=== PATIENT | female | born 1955 | race Caucasian/White ===

== ENCOUNTER 2021-03-20 09:38 | Observation (INO) | payer BC ==
--- NOTE | 2021-03-20 11:21 | XR ---
EXAMINATION TYPE: XR chest 2V DATE OF EXAM: 03/20/2021 COMPARISON: NONE HISTORY: 65 years Female. STUDY INDICATION GIVEN: dysrhythmia . TECHNIQUE: PA and lateral chest radiographs IMPRESSION: No focal airspace disease, pneumothorax or pleural effusion. There may be minimal bibasilar right gre ater than left subsegmental atelectasis. Normal cardiomediastinal silhouette with postsurgical changes. No acute osseous abnormality.
--- NOTE | 2021-03-20 11:53 | ED ---
General Adult HPI - General Chief complaint: Arrhythmia/Palpitations Stated complaint: Heart palpations Time Seen by Provider: 03/20/21 10:54 Source: patient, RN notes reviewed, old records reviewed Mode of arrival: wheelchair Limitations: no limitations - History of Present Illness Initial comments: 65-year-old female presenting with palpitations. Symptoms have been present for the past 24 hours. She's had episodes similar to this in the past but did not last as long. No known history of arrhythmia. She has remote history of open heart surgery for septal defect and valve repair. No history of coronary artery disease. Patient denies chest pain but his had some indigestion over the past 5 days. She does have a history of gastric reflux. No cough or dyspnea. No fever. - Related Data Home Medications Medication Instructions Recorded Confirmed Cholecalciferol [Vitamin D3 (25 50 mcg PO DAILY 03/20/21 03/20/21 Mcg = 1000 Iu)] Loratadine [Claritin] 10 mg PO DAILY 03/20/21 03/20/21 Metoprolol Succinate (ER) [Toprol 12.5 mg PO DAILY 03/20/21 03/20/21 Xl] Modafinil [Provigil] 100 mg PO DAILY PRN 03/20/21 03/20/21 Pantoprazole Sodium [Protonix] 40 mg PO DAILY 03/20/21 03/20/21 Vitamin B Complex 1 cap PO DAILY 03/20/21 03/20/21 cycloSPORINE 0.05% OPHTH SOLN 1 applicator BOTH EYES HS 03/20/21 03/20/21 [Restasis] Allergies Allergy/AdvReac Type Severity Reaction Status Date / Time ceftriaxone [From Rocephin] Allergy Unknown Verified 03/20/21 12:01 ciprofloxacin [From Cipro] Allergy Unknown Verified 03/20/21 12:01 Review of Systems ROS Statement: Those systems with pertinent positive or pertinent negative responses have been documented in the HPI. ROS Other: All systems not noted in ROS Statement are negative. Past Medical History Past Medical History: GERD/Reflux Additional Past Medical History / Comment(s): pancreatitis History of Any Multi-Drug Resistant Organisms: None Reported Past Surgical History: Coronary Bypass/CABG, Ear Surgery, Tonsillectomy Past Psychological History: Depression Smoking Status: Never smoker Past Alcohol Use History: Rare Past Drug Use History: None Reported General Exam Limitations: no limitations General appearance: alert, in no apparent distress Head exam: Present: atraumatic, normocephalic Eye exam: Present: normal appearance, PERRL ENT exam: Present: normal exam Neck exam: Present: normal inspection. Absent: tenderness, meningismus Respiratory exam: Present: normal lung sounds bilaterally. Absent: respiratory distress, wheezes Cardiovascular Exam: Present: regular rate, normal rhythm GI/Abdominal exam: Present: soft. Absent: distended, tenderness, guarding Extremities exam: Present: normal inspection, normal capillary refill. Absent: pedal edema, calf tenderness Neurological exam: Present: alert, oriented X3, CN II-XII intact. Absent: motor sensory deficit Psychiatric exam: Present: normal affect, normal mood Skin exam: Present: warm, dry, intact. Absent: cyanosis, diaphoretic Course Vital Signs 03/20/21 03/20/21 10:08 14:11 Temperature 98.1 F 97.9 F Pulse Rate 73 68 Respiratory 20 17 Rate Blood Pressure 135/82 132/84 O2 Sat by Pulse 99 98 Oximetry EKG Findings - EKG Comments: EKG Findings:: EKG: Normal sinus rhythm, RSR prime prolonged QT, rate of 64, OR interval 184, QRS duration 88, QTC 480, T-wave flattening throughout the precordial leads, no ST segment elevation no old for comparison. EKG: Obtained while the patient is symptomatic at 1322, second degree heart block and left axis deviation, rate of 67, OR interval is within normal limits, QRS duration is 82, QTC 458 Medical Decision Making - Medical Decision Making 65-year-old female who had presented with palpitations. Initial EKG sinus rhythm. Repeat EKG shows second-degree heart block while the patient is symptomatic. Blood pressure is stable. Her CBC, CMP are unremarkable, troponin is negative. She will be monitored on telemetry as she was quite symptomatic with this episode. Cardiology placed on consult. Case discussed with Dr. Stroud. - Lab Data Result diagrams: 03/20/21 12:43 03/20/21 12:43 Lab Results 03/20/21 03/20/21 03/20/21 Range/Units 12:43 12:43 12:43 WBC 6.9 (3.8-10.6) k/uL RBC 4.46 (3.80-5.40) m/uL Hgb 13.2 (11.4-16.0) gm/dL Hct 40.7 (34.0-46.0) % MCV 91.2 (80.0-100.0) fL MCH 29.5 (25.0-35.0) pg MCHC 32.4 (31.0-37.0) g/dL RDW 12.7 (11.5-15.5) % Plt Count 290 (150-450) k/uL MPV 7.6 Neutrophils % 69 % Lymphocytes % 23 % Monocytes % 4 % Eosinophils % 1 % Basophils % 1 % Neutrophils # 4.8 (1.3-7.7) k/uL Lymphocytes # 1.6 (1.0-4.8) k/uL Monocytes # 0.3 (0-1.0) k/uL Eosinophils # 0.0 (0-0.7) k/uL Basophils # 0.0 (0-0.2) k/uL PT 11.2 (9.0-12.0) sec INR 1.1 (<1.2) APTT 22.0 (22.0-30.0) sec Sodium 140 (137-145) mmol/L Potassium 4.6 (3.5-5.1) mmol/L Chloride 107 (98-107) mmol/L Carbon Dioxide 27 (22-30) mmol/L Anion Gap 6 mmol/L BUN 16 (7-17) mg/dL Creatinine 0.93 (0.52-1.04) mg/dL Est GFR (CKD-EPI)AfAm 76 (>60 ml/min/1.73 sqM) Est GFR (CKD-EPI)NonAf 66 (>60 ml/min/1.73 sqM) Glucose 95 (74-99) mg/dL Calcium 9.9 (8.4-10.2) mg/dL Magnesium 2.1 (1.6-2.3) mg/dL Total Bilirubin 0.6 (0.2-1.3) mg/dL AST 30 (14-36) U/L ALT 18 (4-34) U/L Alkaline Phosphatase 39 (38-126) U/L Troponin I (0.000-0.034) ng/mL Total Protein 7.3 (6.3-8.2) g/dL Albumin 4.4 (3.5-5.0) g/dL Coronavirus (PCR) (Not Detectd) 03/20/21 03/20/21 Range/Units 12:43 12:43 WBC (3.8-10.6) k/uL RBC (3.80-5.40) m/uL Hgb (11.4-16.0) gm/dL Hct (34.0-46.0) % MCV (80.0-100.0) fL MCH (25.0-35.0) pg MCHC (31.0-37.0) g/dL RDW (11.5-15.5) % Plt Count (150-450) k/uL MPV Neutrophils % % Lymphocytes % % Monocytes % % Eosinophils % % Basophils % % Neutrophils # (1.3-7.7) k/uL Lymphocytes # (1.0-4.8) k/uL Monocytes # (0-1.0) k/uL Eosinophils # (0-0.7) k/uL Basophils # (0-0.2) k/uL PT (9.0-12.0) sec INR (<1.2) APTT (22.0-30.0) sec Sodium (137-145) mmol/L Potassium (3.5-5.1) mmol/L Chloride (98-107) mmol/L Carbon Dioxide (22-30) mmol/L Anion Gap mmol/L BUN (7-17) mg/dL Creatinine (0.52-1.04) mg/dL Est GFR (CKD-EPI)AfAm (>60 ml/min/1.73 sqM) Est GFR (CKD-EPI)NonAf (>60 ml/min/1.73 sqM) Glucose (74-99) mg/dL Calcium (8.4-10.2) mg/dL Magnesium (1.6-2.3) mg/dL Total Bilirubin (0.2-1.3) mg/dL AST (14-36) U/L ALT (4-34) U/L Alkaline Phosphatase (38-126) U/L Troponin I <0.012 (0.000-0.034) ng/mL Total Protein (6.3-8.2) g/dL Albumin (3.5-5.0) g/dL Coronavirus (PCR) Not Detected (Not Detectd) Disposition Clinical Impression: Second degree AV block, Palpitations Disposition: ADMITTED IP TO THIS HOSP Condition: Stable Is patient prescribed a controlled substance at d/c from ED?: No Referrals: Radhika Andrade MD [Primary Care Provider] - 1-2 days Decision to Admit Reason: Admit from EC Decision Date: 03/20/21 Decision Time: 14:32
[2021-03-20 12:55] LABS: Basophils % (A) 1 %; Eosinophils % (A) 1 %; HCT 40.7 % (34.0-46.0); HGB 13.2 gm/dL (11.4-16.0); Lymphocytes # (A) 1.6 k/uL (1.0-4.8); Lymphocytes % (A) 23 %; MCH 29.5 pg (25.0-35.0); MCHC 32.4 g/dL (31.0-37.0); MCV 91.2 fL (80.0-100.0); Mean Platelet Volume 7.6; Monocytes # (A) 0.3 k/uL (0-1.0); Monocytes % (A) 4 %; Neutrophils # (A) 4.8 k/uL (1.3-7.7); Neutrophils % (A) 69 %; Platelet Count 290 k/uL (150-450); RBC 4.46 m/uL (3.80-5.40); RDW 12.7 % (11.5-15.5); WBC 6.9 k/uL (3.8-10.6)
[2021-03-20 13:09] LABS: Potassium 4.6 mmol/L (3.5-5.1)
[2021-03-20 13:10] LABS: Albumin 4.4 g/dL (3.5-5.0); Calcium 9.9 mg/dL (8.4-10.2); Magnesium 2.1 mg/dL (1.6-2.3); Total Bilirubin 0.6 mg/dL (0.2-1.3); Total Protein 7.3 g/dL (6.3-8.2)
[2021-03-20 13:25] LABS: INR 1.1 (<1.2); Prothrombin Time 11.2 sec (9.0-12.0)
[2021-03-20] MEDS ORDERED: modafiniL 100 MG TAB PO PRN (14:15)
[2021-03-20] MEDS ORDERED: MAG HYDROX/AL HYDROX/SIMETH 30 ML CUP PO PRN (14:15)
[2021-03-20] MEDS ORDERED: MELATONIN 3 MG TABLET PO PRN (14:15)
[2021-03-20] MEDS ORDERED: ALPRAZolam 0.25 MG TAB PO PRN (14:15)
[2021-03-20] MEDS ORDERED: ONDANSETRON 4 MG/2 ML VIAL IVP PRN (14:15)
[2021-03-20] MEDS ORDERED: ACETAMINOPHEN TAB 325 MG TAB PO PRN (14:15)
[2021-03-20] MEDS ORDERED: LACTULOSE 20 GM/30 ML CUP PO PRN (14:15)
[2021-03-20] MEDS ORDERED: NALOXONE 0.4 MG/ML 1 ML VIAL IV PRN ×2 (14:15→14:23)
[2021-03-20] MEDS: ENOXAPARIN 40 MG/0.4 ML SYRINGE SQ SCH (14:59)
[2021-03-20 15:35] VITALS: RESP 16
[2021-03-20] MEDS: SODIUM CHLORIDE 0.9% 1,000 ML IV SCH (16:46)
[2021-03-20] MEDS: PANTOPRAZOLE 40 MG TABLET PO SCH (20:50)
[2021-03-20] MEDS ORDERED: cycloSPORINE 0.05% OPHTH 0.4 ML DROPERETTE BOTH EYES SCH (21:00)
[2021-03-21] MEDS: SODIUM CHLORIDE 0.9% 1,000 ML IV SCH (03:23)
[2021-03-21 07:34] VITALS: BP 118/72; PULSE 59; TEMP 98
[2021-03-21] MEDS: ENOXAPARIN 40 MG/0.4 ML SYRINGE SQ SCH (07:43)
[2021-03-21] MEDS: PANTOPRAZOLE 40 MG TABLET PO SCH (07:43)
[2021-03-21] MEDS ORDERED: METOPROLOL SUCCINATE (ER) 25 MG TAB.ER.24H PO SCH (09:00)
[2021-03-21] MEDS ORDERED: NON FORMULARY DRUG (Vitamin B Complex [Vitamin B Complex] 1 EACH Capsule) PO SCH (09:00)
[2021-03-21] MEDS ORDERED: CHOLECALCIFEROL 25 MCG (1000 IU) TABLET PO SCH (09:00)
--- NOTE | 2021-03-21 09:16 | P.CRDCN ---
History of Present Illness Consult date: 03/21/21 History of present illness: HISTORY OF PRESENT ILLNESS: This is a 65-year-old female with a past medical history significant for SVT and ASD status post repair and tricuspid valve repair in 1992. Patient follows in the office with Dr. Conrad. We have been asked to see the patient in consultation for second-degree heart block. Patient examined at the bedside. Patient presented to the hospital with a chief complaint of palpitations. She states this started on Sunday. She reports it did not feel like her heart was racing like it did in the past when she had SVT. She states these episodes would last for a 5-10 seconds and some episodes would last for a few minutes. She states she would then feel weak and need to rest afterwards. She describes the feeling as having an air bubble in her chest that needed to get out. She denied feeling dizzy or lightheaded. She denied shortness of breath. She states she has had no further episodes this morning and feels fairly well today. EKG interpreted by ER physician a second degree heart block. EKG reviewed by Dr. Gallegos this morning revealing atrial bigeminy. Telemetry revealing normal sinus mechanism. Chest xray negative for acute process Laboratory data: WBC 6.9. Hemoglobin 13.2. Platelet count 290. Sodium 140. Potassium 4.6. BUN 16. Creatinine 0.93. Magnesium 2.1. Troponin negative 1. Current home cardiac medications include metoprolol succinate 12.5 mg daily Most recent echocardiogram obtained in January 2020 revealed ejection fraction 52% with [id number] tricuspid regurgitation Patient underwent a ETT stress test in 2017 which was negative for ischemia REVIEW OF SYSTEMS: At the time of my exam: CONSTITUTIONAL: Denies fever or chills. HEENT: Denies blurred vision, vision changes, or eye pain. Denies hemoptysis CARDIOVASCULAR: Denies chest pain. Denies orthopnea. Denies PND. Denies palpitations RESPIRATORY: Denies shortness of breath. GASTROINTESTINAL: Denies abdominal pain. Denies nausea or vomiting. HEMATOLOGIC: Denies bleeding disorders. GENITOURINARY: Denies any blood in urine. SKIN: Denies pruitis. Denies rash. PHYSICAL EXAM: VITAL SIGNS: Reviewed. GENERAL: Well-developed in no acute distress. HEENT: Head is normocephalic. Pupils are equal, round. Sclerae anicteric. Mucous membranes of the mouth are moist. Neck supple. No JVD or thyromegaly LUNGS: Respirations even and unlabored. Lungs essentially clear to auscultation bilaterally. HEART: Regular rate and rhythm. S1 and S2 heard. ABDOMEN: Soft. Nondistended. Nontender. EXTREMITIES: Normal range of motion. No clubbing or cyanosis. Peripheral pulses intact. No lower extremity edema NEUROLOGIC: Awake and alert. Oriented x 3. ASSESSMENT: Palpitations Atrial bigeminy History of ASD status post repair and tricuspid valve repair, 1992 History of SVT PLAN: Resume home dose of metoprolol No need for pacemaker at this time Obtain 2D echo to assess cardiac structure and function Check TSH Patient may be discharged home this afternoon and follow up outpatient with Dr. Conrad Nurse practitioner note has been reviewed by physician. Signing provider agrees with the documented findings, assessment, and plan of care. Past Medical History Past Medical History: GERD/Reflux, Rheumatoid Arthritis (RA) Additional Past Medical History / Comment(s): pancreatitis. migraines History of Any Multi-Drug Resistant Organisms: None Reported Past Surgical History: Coronary Bypass/CABG, Ear Surgery, Tonsillectomy Past Anesthesia/Blood Transfusion Reactions: No Reported Reaction Past Psychological History: Depression Smoking Status: Never smoker Past Alcohol Use History: Rare Past Drug Use History: None Reported Medications and Allergies Home Medications Medication Instructions Recorded Confirmed Type Cholecalciferol [Vitamin D3 (25 50 mcg PO DAILY 03/20/21 03/20/21 History Mcg = 1000 Iu)] Loratadine [Claritin] 10 mg PO DAILY 03/20/21 03/20/21 History Metoprolol Succinate (ER) [Toprol 12.5 mg PO DAILY 03/20/21 03/20/21 History Xl] Modafinil [Provigil] 100 mg PO DAILY PRN 03/20/21 03/20/21 History Pantoprazole Sodium [Protonix] 40 mg PO DAILY 03/20/21 03/20/21 History Vitamin B Complex 1 cap PO DAILY 03/20/21 03/20/21 History cycloSPORINE 0.05% OPHTH SOLN 1 applicator BOTH EYES HS 03/20/21 03/20/21 History [Restasis] Allergies Allergy/AdvReac Type Severity Reaction Status Date / Time ceftriaxone [From Rocephin] Allergy Unknown Verified 03/20/21 12:01 ciprofloxacin [From Cipro] Allergy Unknown Verified 03/20/21 12:01 Physical Exam Vitals: Vital Signs Temp Pulse Pulse Resp BP BP BP 03/21/21 07:00 98 F 59 L 16 118/72 03/21/21 02:16 97.4 F L 63 16 102/66 03/20/21 19:33 98.1 F 56 L 16 93/64 03/20/21 15:00 98.1 F 70 16 126/84 03/20/21 14:46 16 03/20/21 14:11 97.9 F 68 17 132/84 03/20/21 10:08 98.1 F 73 20 135/82 Pulse Ox 03/21/21 07:00 98 03/21/21 02:16 97 03/20/21 19:33 98 03/20/21 15:00 98 03/20/21 14:46 03/20/21 14:11 98 03/20/21 10:08 99 Intake and Output 03/20/21 03/21/21 03/21/21 22:59 06:59 14:59 Other: # Voids 2 Results 03/20/21 12:43 03/20/21 12:43 Cardiac Enzymes 03/20/21 03/20/21 Range/Units 12:43 12:43 AST 30 (14-36) U/L Troponin I <0.012 (0.000-0.034) ng/mL Coagulation 03/20/21 Range/Units 12:43 PT 11.2 (9.0-12.0) sec APTT 22.0 (22.0-30.0) sec CBC 03/20/21 Range/Units 12:43 WBC 6.9 (3.8-10.6) k/uL RBC 4.46 (3.80-5.40) m/uL Hgb 13.2 (11.4-16.0) gm/dL Hct 40.7 (34.0-46.0) % Plt Count 290 (150-450) k/uL Comprehensive Metabolic Panel 03/20/21 Range/Units 12:43 Sodium 140 (137-145) mmol/L Potassium 4.6 (3.5-5.1) mmol/L Chloride 107 (98-107) mmol/L Carbon Dioxide 27 (22-30) mmol/L BUN 16 (7-17) mg/dL Creatinine 0.93 (0.52-1.04) mg/dL Glucose 95 (74-99) mg/dL Calcium 9.9 (8.4-10.2) mg/dL AST 30 (14-36) U/L ALT 18 (4-34) U/L Alkaline Phosphatase 39 (38-126) U/L Total Protein 7.3 (6.3-8.2) g/dL Albumin 4.4 (3.5-5.0) g/dL Current Medications Generic Name Dose Route Start Last Admin Trade Name Freq PRN Reason Stop Dose Admin Acetaminophen 650 mg 03/20/21 14:15 03/21/21 07:42 Acetaminophen Tab 325 Mg Tab PO 650 mg Q6HR PRN Administration Mild Pain or Fever > 100.5 Al Hydroxide/Mg Hydroxide 15 ml 03/20/21 14:15 Mag Hydrox/Al Hydrox/Simeth 30 Ml Cup PO Q6HR PRN Indigestion Alprazolam 0.25 mg 03/20/21 14:15 Alprazolam 0.25 Mg Tab PO Q6HR PRN Anxiety Cholecalciferol 50 mcg 03/21/21 09:00 03/21/21 07:42 Cholecalciferol 25 Mcg (1000 Iu) Tablet PO 50 mcg DAILY SUYAPA Administration Cyclosporine 1 drops 03/20/21 21:00 03/20/21 20:51 Cyclosporine 0.05% Ophth 0.4 Ml Droperette BOTH EYES 1 drops HS SUYAPA Administration Enoxaparin Sodium 40 mg 03/20/21 14:15 03/21/21 07:43 Enoxaparin 40 Mg/0.4 Ml Syringe SQ 40 mg DAILY SUYAPA Administration Sodium Chloride 1,000 mls @ 75 mls/hr 03/20/21 14:30 03/21/21 03:23 Saline 0.9% IV 75 mls/hr .[id number] SUYAPA Administration Lactulose 20 gm 03/20/21 14:15 Lactulose 20 Gm/30 Ml Cup PO DAILY PRN Constipation Melatonin 3 mg 03/20/21 14:15 Melatonin 3 Mg Tablet PO HS PRN Insomnia Modafinil 100 mg 03/20/21 14:15 Modafinil 100 Mg Tab PO DAILY PRN ALERTNESS Naloxone HCl 0.2 mg 03/20/21 14:23 Naloxone 0.4 Mg/Ml 1 Ml Vial IV Q2M PRN Opioid Reversal Ondansetron HCl 4 mg 03/20/21 14:15 Ondansetron 4 Mg/2 Ml Vial IVP Q8HR PRN Nausea And Vomiting Pantoprazole Sodium 40 mg 03/20/21 21:00 03/21/21 07:43 Pantoprazole 40 Mg Tablet PO 40 mg BID SUYAPA Administration Intake and Output 03/20/21 03/21/21 03/21/21 22:59 06:59 14:59 Other: # Voids 2 03/20/21 12:43 03/20/21 12:43
--- NOTE | 2021-03-21 17:31 | P.HPIM ---
History of Present Illness H&P Date: 03/20/21 Chief Complaint: funny sensation of the chest This is a pleasant 65-year-old patient follows with Dr. Radhika Andrade. 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 Patient back in 1990 had ASD and tricuspid valve repair. Patient has follows with her color tester and has had event monitor and Holter monitor not found to have any arrhythmias for symptoms of palpitations. Patient for about a week has noted increasing reflux symptoms. Belching. Also noticed to have some missed beats and offenses funny sensation in the chest. Decided to come in. In the ER strip shows found to have different rhythms including second-degree block questionable sick third-degree block, sinus rhythm. Patient had been resting in bed. No symptoms. Cardiology was consulted. 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 Depression in the past. Urinary incontinence. Arthritis in the neck. Social history: . No smoking. Alcohol rarely. Works as a infusion nurse. Family history: Reviewed, noncontributory to presentation Physical examination: VITAL SIGNS: 98.1, 73, 20, 1 35/82, 99% room air GENERAL: BMI 28.5, declining bed, awake, comfortable. EYES: Pupils equal. Conjunctiva normal. HEENT: External appearance of nose and ears normal, oral cavity grossly normal. NECK: JVD not raised; masses not palpable. HEART: First and second heart sounds are normal; no edema. LUNGS: Respiratory rate normal; clear to auscultation. ABDOMEN: Soft, nontender, liver spleen not palpable, no masses palpable. PSYCH: Alert and oriented x3; mood and affect normal. NEUROLOGICAL: Cranial nerves grossly intact; no facial asymmetry, power and sensation grossly intact. LYMPHATICS: No lymph nodes palpable in the axilla and neck INVESTIGATIONS, reviewed in the clinical context: WBC 6.9 hemoglobin 13.2 platelets 290 sodium 140 potassium 4.6 creatinine 0.93 Coronavirus [PCR]: Not detected Chest x-ray film personally reviewed by me-no infiltrate. Some hyperinflation EKG tracings personally reviewed by me: Sinus rhythm. Variable block. Third-d egree block. Second-degree block. Short limited Assessment and plan: -Patient presents with nonspecific chest symptoms. Found to have elements of different AV blocks short-lived. Patient is put on telemetry. Cardiology consulted. This is the setting of prior surgery for ASD and tricuspid valve repair. In the past patient's had Holter and event monitor that was unremarkable. -GERD Protonix -Idiopathic hypersomnia Provigil -Mild urinary incontinence -Cervical spine arthritis Pain medications as needed Home medications resumed. Toprol-XL was held. Telemetry. Cartilage consulted. Care was discussed with the patient. Past Medical History Past Medical History: GERD/Reflux, Rheumatoid Arthritis (RA) Additional Past Medical History / Comment(s): pancreatitis. migraines History of Any Multi-Drug Resistant Organisms: None Reported Past Surgical History: Coronary Bypass/CABG, Ear Surgery, Tonsillectomy Past Anesthesia/Blood Transfusion Reactions: No Reported Reaction Past Psychological History: Depression Smoking Status: Never smoker Past Alcohol Use History: Rare Past Drug Use History: None Reported Medications and Allergies Home Medications Medication Instructions Recorded Confirmed Type Cholecalciferol [Vitamin D3 (25 50 mcg PO DAILY 03/20/21 03/20/21 History Mcg = 1000 Iu)] Metoprolol Succinate (ER) [Toprol 12.5 mg PO DAILY 03/20/21 03/20/21 History XL] Modafinil [Provigil] 100 mg PO DAILY PRN 03/20/21 03/20/21 History Pantoprazole Sodium [Protonix] 40 mg PO DAILY 03/20/21 03/20/21 History Vitamin B Complex 1 cap PO DAILY 03/20/21 03/20/21 History cycloSPORINE 0.05% OPHTH SOLN 1 drop BOTH EYES HS 03/20/21 03/21/21 History [Restasis] Allergies Allergy/AdvReac Type Severity Reaction Status Date / Time ceftriaxone [From Rocephin] Allergy Unknown Verified 03/20/21 12:01 ciprofloxacin [From Cipro] Allergy Unknown Verified 03/20/21 12:01 Physical Exam Vitals: Vital Signs Temp Pulse Resp BP Pulse Ox 03/21/21 13:42 59 L 16 03/21/21 08:00 59 L 16 03/21/21 07:00 98 F 59 L 16 118/72 98 03/21/21 02:16 97.4 F L 63 16 102/66 97 03/20/21 19:33 98.1 F 56 L 16 93/64 98 Intake and Output 03/21/21 03/21/21 03/21/21 06:59 14:59 22:59 Other: # Voids 2 3 # Bowel Movements 1 Results CBC & Chem 7: 03/20/21 12:43 03/20/21 12:43 Thrombosis Risk Factor Assmnt - Choose All That Apply Any of the Below Risk Factors Present?: No Each Factor Represents 1 point: Heart failure (<1month) Each Risk Factor Represents 2 Points: Age 61-74 years Other congenital or acquired thrombophilia - If yes, enter type in comment: No Thrombosis Risk Factor Assessment Total Risk Factor Score: 3 Thrombosis Risk Factor Assessment Level: Moderate Risk
--- NOTE | 2021-03-21 17:34 | P.DS ---
Providers Date of admission: 03/20/21 14:41 Expected date of discharge: 03/21/21 Attending physician: Bari Stroud Consults: 03/20/21 14:24 Consult Physician Routine Consulting Provider: Myron Granados Consult Reason/Comments: Second-degree heart block Do you want consulting provider notified?: Yes Primary care physician: Radhika Andrade [facility] Course: Chief Complaint: funny sensation of the chest This is a pleasant 65-year-old patient follows with Dr. Radhika Andrade. 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 Patient back in 1990 had ASD and tricuspid valve repair. Patient has follows with her finished stock inspector and has had event monitor and Holter monitor not found to have any arrhythmias for symptoms of palpitations. Patient for about a week has noted increasing reflux symptoms. Belching. Also noticed to have some missed beats and offenses funny sensation in the chest. Decided to come in. In the ER strip shows found to have different rhythms including second-degree block questionable sick third-degree block, sinus rhythm. Patient had been resting in bed. No symptoms. Cardiology was consulted. In the ER patient was noted to have a short span of a few blocks including second-degree and possible third-degree. Placed on telemetry. Today: Patient was seen by cardiology. They felt patient had atrial bigeminy and appears to be sinoatrial block. Did assuming patient's Toprol. Patient is to follow with Dr. Conrad as outpatient. Consultation: Dr. 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 Depression in the past. Urinary incontinence. Arthritis in the neck. Social history: . No smoking. Alcohol rarely. Works as a infusion nurse. Family history: Reviewed, noncontributory to presentation Physical examination: VITAL SIGNS: 97.9, 68, 17, 132/84, 98% room air GENERAL: BMI 28.5, declining bed, awake, comfortable. EYES: Pupils equal. Conjunctiva normal. HEENT: External appearance of nose and ears normal, oral cavity grossly normal. NECK: JVD not raised; masses not palpable. HEART: First and second heart sounds are normal; no edema. LUNGS: Respiratory rate normal; clear to auscultation. ABDOMEN: Soft, nontender, liver spleen not palpable, no masses palpable. PSYCH: Alert and oriented x3; mood and affect normal. INVESTIGATIONS, reviewed in the clinical context: WBC 6.9 hemoglobin 13.2 platelets 290 sodium 140 potassium 4.6 creatinine 0.93 Coronavirus [PCR]: Not detected Chest x-ray film personally reviewed by me-no infiltrate. Some hyperinflation EKG tracings personally reviewed by me: Sinus rhythm. Variable block. Third- degree block. Second-degree block. Short limited Assessment and plan: -Atrial bigeminy with possible sinoatrial block. Patient told resume Toprol-XL per cardiology. Will follow with Dr. Conrad as outpatient. -GERD Protonix -Idiopathic hypersomnia Provigil -Mild urinary incontinence -Cervical spine arthritis Pain medications as needed Disposition: Home Plan - Discharge Summary Discharge Rx Participant: No New Discharge Prescriptions: Continue cycloSPORINE 0.05% OPHTH SOLN [Restasis] 1 drop BOTH EYES HS Vitamin B Complex 1 cap PO DAILY Cholecalciferol [Vitamin D3 (25 Mcg = 1000 Iu)] 50 mcg PO DAILY Pantoprazole Sodium [Protonix] 40 mg PO DAILY Modafinil [Provigil] 100 mg PO DAILY PRN PRN Reason: ALERTNESS Metoprolol Succinate (ER) [Toprol XL] 12.5 mg PO DAILY Discontinued Loratadine [Claritin] 10 mg PO DAILY Discharge Medication List Cholecalciferol [Vitamin D3 (25 Mcg = 1000 Iu)] 50 mcg PO DAILY 03/20/21 [History] Metoprolol Succinate (ER) [Toprol XL] 12.5 mg PO DAILY 03/20/21 [History] Modafinil [Provigil] 100 mg PO DAILY PRN 03/20/21 [History] Pantoprazole Sodium [Protonix] 40 mg PO DAILY 03/20/21 [History] Vitamin B Complex 1 cap PO DAILY 03/20/21 [History] cycloSPORINE 0.05% OPHTH SOLN [Restasis] 1 drop BOTH EYES HS 03/20/21 [History] Follow up Appointment(s)/Referral(s): González Conrad MD [STAFF PHYSICIAN] - 1 Week Radhika Andrade MD [Primary Care Provider] - 1-2 days Activity/Diet/Wound Care/Special Instructions: dc when ok with cardiology Discharge Disposition: HOME SELF-CARE
--- NOTE | 2021-03-22 12:48 | ECHOF ---
Referral Reason:LV function MEASUREMENTS -------- HEIGHT: 160.0 cm WEIGHT: 73.0 kg BP: 118/72 RVIDd: 3.0 cm (< 3.3) IVSd: 1.0 cm (0.6 - 1.1) LVIDd: 3.9 cm (3.9 - 5.3) LVPWd: 0.9 cm (0.6 - 1.1) IVSs: 1.5 cm LVIDs: 2.7 cm LVPWs: 1.2 cm LAESV Index (A-L): 22.00 ml/m Ao Diam: 2.7 cm (2.0 - 3.7) AV Cusp: 1.8 cm (1.5 - 2.6) LA Diam: 3.5 cm (2.7 - 3.8) MV EXCURSION: 15.387 mm (> 18.000) MV EF SLOPE: 69 mm/s (70 - 150) EPSS: 1.2 cm MV E Blas: 0.81 m/s MV DecT: 212 ms MV A Blas: 0.77 m/s MV E/A Ratio: 1.06 RAP: 5.00 mmHg RVSP: 26.13 mmHg FINDINGS -------- Sinus rhythm. This was a technically adequate study. The left ventricular size is normal. Left ventricular wall thickness is normal. Overall left vent ricular systolic function is normal with, an EF between 55 - 60 %. The right ventricle is normal in size. Normal LA size by volume 22+/-6 ml/m2. The right atrial size is normal. Interatrial and interventricular septum intact. S/P ASD repair The aortic valve is trileaflet and appears structurally normal. There is no evidence of aortic regu rgitation. There is no evidence of aortic stenosis. No mitral regurgitation. Mild tricuspid regurgitation present. There is no evidence of pulmonary hypertension. The right v entricular systolic pressure, as measured by Doppler, is 26.13mmHg. TVrepair. There is no pulmonic regurgitation present. The aortic root size is normal. Normal inferior vena cava with normal inspiratory collapse consistent with estimated right atrial pre ssure of 5 mmHg. There is no pericardial effusion. CONCLUSIONS -------- 1. The left ventricular size is normal. 2. Left ventricular wall thickness is normal. 3. Overall left ventricular systolic function is normal with, an EF between 55 - 60 %. 4. S/P ASD repair 5. Mild tricuspid regurgitation present. 6. TVrepair. CERTIFIED SURGICAL TECHNOLOGIST: Leticia Parnell RDCS
== END 2021-03-21 14:10 | disposition home or self-care (01) ==
LOC: EC 09:38 → 6NMEDSUR 14:41
PROVIDERS: ADMIT Hospitalist; ATTEND Hospitalist
DX: R00.8 Other abnormalities of heart beat (principal); I44.1 Atrioventricular block, second degree; Z87.74 Personal history of (corrected) congenital malformations of heart and circulatory system; I07.1 Rheumatic tricuspid insufficiency; G47.11 Idiopathic hypersomnia with long sleep time; R32 Unspecified urinary incontinence; M47.812 Spondylosis without myelopathy or radiculopathy, cervical region; M16.11 Unilateral primary osteoarthritis, right hip; I47.1 Supraventricular tachycardia; M06.9 Rheumatoid arthritis, unspecified; G43.909 Migraine, unspecified, not intractable, without status migrainosus; K21.9 Gastro-esophageal reflux disease without esophagitis; F32.9 Major depressive disorder, single episode, unspecified; Z20.828 Contact with and (suspected) exposure to other viral communicable diseases; Z79.899 Other long term (current) drug therapy; Z88.1 Allergy status to other antibiotic agents; Z87.19 Personal history of other diseases of the digestive system; Z98.890 Other specified postprocedural states
CPT/HCPCS: 96360; 96361; 96372 ×2; 99285; 36415; 93005; 93306; 80053; 84443; 83735; 84484; 85025; 85610; 85730; 87635; 71046; G0378 ×2; J1650 ×2

== ENCOUNTER 2023-08-03 11:10 | Emergency (ER) | payer BC, MEDICARE ==
--- NOTE | 2023-08-03 11:25 | ED ---
Abdominal Pain HPI - General Chief Complaint: Abdominal Pain Stated Complaint: Abdominal Pain Time Seen by Provider: 08/03/23 11:23 Source: patient, RN notes reviewed Mode of arrival: ambulatory Limitations: no limitations - History of Present Illness Initial Comments: This is a 67-year-old female presents emergency department chief complaint of abdominal pain, nausea and vomiting over the last 5 days. Patient states that she started feeling some symptoms of constipation today had an episode of emesis from Sunday and noted a tenderness to her left lower abdomen that began last night. She denies hematochezia, stools, dyschezia, dysuria. States her last colonoscopy was 10 years ago she is due for 1 this calendar year. Denies previous abdominal surgeries. States that she does have Tylenol in the past she will take it at home as needed for chronic pain, states that she normally takes Colace with this resolves her complaints of constipation. - Related Data Home Medications Medication Instructions Recorded Confirmed Cholecalciferol [Vitamin D3 (25 50 mcg PO DAILY 03/20/21 03/20/21 Mcg = 1000 Iu)] Metoprolol Succinate (ER) [Toprol 12.5 mg PO DAILY 03/20/21 03/20/21 XL] Pantoprazole Sodium [Protonix] 40 mg PO DAILY 03/20/21 03/20/21 Vitamin B Complex 1 cap PO DAILY 03/20/21 03/20/21 cycloSPORINE 0.05% OPHTH SOLN 1 drop BOTH EYES HS 03/20/21 03/21/21 [Restasis] modafiniL [Provigil] 100 mg PO DAILY PRN 03/20/21 03/20/21 Allergies Allergy/AdvReac Type Severity Reaction Status Date / Time ceftriaxone [From Rocephin] Allergy Unknown Verified 03/20/21 12:01 ciprofloxacin [From Cipro] Allergy Unknown Verified 03/20/21 12:01 amoxicillin [From Augmentin] AdvReac Nausea & Verified 08/03/23 11:16 Vomiting & Diarrhea clavulanic acid AdvReac Nausea & Verified 08/03/23 11:16 [From Augmentin] Vomiting & Diarrhea Review of Systems ROS Statement: Those systems with pertinent positive or pertinent negative responses have been documented in the HPI. ROS Other: All systems not noted in ROS Statement are negative. Past Medical History Past Medical History: GERD/Reflux, Rheumatoid Arthritis (RA) Additional Past Medical History / Comment(s): pancreatitis. migraines History of Any Multi-Drug Resistant Organisms: None Reported Past Surgical History: Coronary Bypass/CABG, Ear Surgery, Orthopedic Surgery, Tonsillectomy Past Anesthesia/Blood Transfusion Reactions: No Reported Reaction Past Psychological History: Depression Smoking Status: Never smoker Past Alcohol Use History: Rare Past Drug Use History: None Reported General Exam Limitations: no limitations General appearance: alert, in no apparent distress Head exam: Present: atraumatic, normocephalic, normal inspection Eye exam: Present: normal appearance, PERRL, EOMI. Absent: scleral icterus, conjunctival injection, periorbital swelling ENT exam: Present: normal exam, mucous membranes moist Neck exam: Present: normal inspection. Absent: tenderness, meningismus, lymphadenopathy Respiratory exam: Present: normal lung sounds bilaterally. Absent: respiratory distress, wheezes, rales, rhonchi, stridor Cardiovascular Exam: Present: regular rate, normal rhythm, normal heart sounds. Absent: systolic murmur, diastolic murmur, rubs, gallop, clicks GI/Abdominal exam: Present: soft, tenderness (LLQ with deep palpation), normal bowel sounds. Absent: distended, guarding, rebound, rigid Extremities exam: Present: normal inspection, full ROM, normal capillary refill. Absent: tenderness, pedal edema, joint swelling, calf tenderness Back exam: Present: normal inspection Neurological exam: Present: alert, oriented X3, CN II-XII intact Psychiatric exam: Present: normal affect, normal mood Skin exam: Present: warm, dry, intact, normal color. Absent: rash Course Vital Signs 08/03/23 11:12 Temperature 98.1 F Pulse Rate 79 Respiratory 18 Rate Blood Pressure 145/81 O2 Sat by Pulse 98 Oximetry Medical Decision Making - Medical Decision Making Was pt. sent in by a medical professional or institution (, PA, JEWELRY CASTING MODEL MAKER, urgent care, hospital, or halfway...) When possible be specific @ -No Did you speak to anyone other than the patient for history (EMS, parent, family, police, friend...)? What history was obtained from this source @ -No Did you review nursing and triage notes (agree or disagree)? Why? @ -I reviewed and agree with nursing and triage notes Were old charts reviewed (outside hosp., previous admission, EMS record, old EKG, old radiological studies, urgent care reports/EKG's, halfway records)? Report findings @ -No old charts were reviewed Differential Diagnosis (chest pain, altered mental status, abdominal pain women, abdominal pain men, vaginal bleeding, weakness, fever, dyspnea, syncope, headache, dizziness, GI bleed, back pain, seizure, CVA, palpatations, mental health, musculoskeletal)? @ -Differential Abdominal Pain Women: Appendicitis, Cholecystitis, diverticulosis, ischemic bowel, pancreatitis, hepatitis, UTI, gastroenteritis, AAA, incarcerated hernia, bowel obstruction, constipation, inflammatory bowel, hepatitis, peptic ulcer disease, splenic infarction, perforated viscus, vulvitis, ovarian torsion, PID, kidney stone, placenta abruption, this is not meant to be an all-inclusive list EKG interpreted by me (3pts min.). @ -none X-rays interpreted by me (1pt min.). @ -None done CT interpreted by me (1pt min.). @ -CT abdomen and pelvis without contrast no acute intraabdominal process U/S interpreted by me (1pt. min.). @ -None done What testing was considered but not performed or refused? (CT, X-rays, U/S, labs)? Why? @ -None What meds were considered but not given or refused? Why? @ -None Did you discuss the management of the patient with other professionals (professionals i.e. , PA, JEWELRY CASTING MODEL MAKER, lab, RT, psych nurse, social media sr strategy manager, refinery operator helper cracking unit, teacher, senior major gifts officer, director of casework department)? Give summary @ -No Was smoking cessation discussed for >3mins.? @ -No Was critical care preformed (if so, how long)? @ -No Were there social determinants of health that impacted care today? How? (Homelessness, low income, unemployed, alcoholism, drug addiction, transportation, low edu. Level, literacy, decrease access to med. care, snf, rehab)? @ -No Was there de-escalation of care discussed even if they declined (Discuss DNR or withdrawal of care, Hospice)? DNR status @ -No What co-morbidities impacted this encounter? (DM, HTN, Smoking, COPD, CAD, Cancer, CVA, ARF, Chemo, Hep., AIDS, mental health diagnosis, sleep apnea, morbid obesity)? @ -None Was patient admitted / discharged? Hospital course, mention meds given and route, prescriptions, significant lab abnormalities, going to OR and other pertinent info. @ -67-year-old female with abdominal pain and nausea/vomiting. Exam notable for tenderness to palpation of the left lower quadrant. Basic labs ordered in addition to imaging of the abdomen. Reviewed laboratory results with acute findings, no evidence of leukocytosis, liver and pancreatic enzymes within normal limits. UA no acute signs of infection. At this time patient will be sent for CT ab pelvis w/ contrast to rule out further pathology. CT results no acute abdominal process noted. Evaluating the distal colon. Patient examined on arrival. Due to. Recommend patient take MiraLAX and Colace, offered prescription to bedside given patient states that she has medications at home. Patient to follow-up with primary care provider within the next 1 to 2 weeks for further intervention. I discussed this case with Dr. Montes who is agreeable with plan Undiagnosed new problem with uncertain prognosis? @ -No Drug Therapy requiring intensive monitoring for toxicity (Heparin, Nitro, Insulin,electrolyte abnormalities, Cardizem)? @ -No Were any procedures done? @ -No Diagnosis/symptom? @ -abdominal pain Acute, or Chronic, or Acute on Chronic? @ -acute Uncomplicated (without systemic symptoms) or Complicated (systemic symptoms)? @ uncomplicated Side effects of treatment? @ -No Exacerbation, Progression, or Severe Exacerbation? @ -No Poses a threat to life or bodily function? How? (Chest pain, [place], GA, pneumonia, PE, COPD, DKA, ARF, appy, cholecystitis, CVA, Diverticulitis, Homicidal, Suicidal, threat to staff... and all critical care pts) @ -No - Lab Data Result diagrams: 08/03/23 12:11 08/03/23 12:11 Lab Results 08/03/23 08/03/23 08/03/23 Range/Units 12:11 12:11 12:11 WBC 7.8 (3.8-10.6) k/uL RBC 4.33 (3.80-5.40) m/uL Hgb 12.7 (11.4-16.0) gm/dL Hct 40.0 (34.0-46.0) % MCV 92.5 (80.0-100.0) fL MCH 29.2 (25.0-35.0) pg MCHC 31.6 (31.0-37.0) g/dL RDW 13.2 (11.5-15.5) % Plt Count 277 (150-450) k/uL MPV 7.5 Neutrophils % 78 % Lymphocytes % 14 % Monocytes % 5 % Eosinophils % 1 % Basophils % 0 % Neutrophils # 6.1 (1.3-7.7) k/uL Lymphocytes # 1.1 (1.0-4.8) k/uL Monocytes # 0.4 (0-1.0) k/uL Eosinophils # 0.1 (0-0.7) k/uL Basophils # 0.0 (0-0.2) k/uL Sodium 140 (137-145) mmol/L Potassium 4.4 (3.5-5.1) mmol/L Chloride 105 (98-107) mmol/L Carbon Dioxide 26 (22-30) mmol/L Anion Gap 9 mmol/L BUN 17 (7-17) mg/dL Creatinine 0.82 (0.52-1.04) mg/dL Est GFR (CKD-EPI)AfAm 87 (>60 ml/min/1.73 sqM) Est GFR (CKD-EPI)NonAf 75 (>60 ml/min/1.73 sqM) Glucose 104 H (74-99) mg/dL Calcium 9.8 (8.4-10.2) mg/dL Magnesium 2.0 (1.6-2.3) mg/dL Total Bilirubin 0.6 (0.2-1.3) mg/dL AST 32 (14-36) U/L ALT 23 (4-34) U/L Alkaline Phosphatase 49 (38-126) U/L Total Protein 7.4 (6.3-8.2) g/dL Albumin 4.4 (3.5-5.0) g/dL Amylase 55 (30-110) U/L Lipase 62 (23-300) U/L Urine Color Colorless Urine Appearance Clear (Clear) Urine pH 7.5 (5.0-8.0) Ur Specific [place] 1.007 (1.001-1.035) Urine Protein Negative (Negative) Urine Glucose (UA) Negative (Negative) Urine Ketones Negative (Negative) Urine Blood Negative (Negative) Urine Nitrite Negative (Negative) Urine Bilirubin Negative (Negative) Urine Urobilinogen <2.0 (<2.0) mg/dL Ur Leukocyte Esterase Negative (Negative) Disposition Clinical Impression: Constipation, Abdominal pain Narrative: Please return to the Emergency Department if symptoms worsen or any other concerns. Disposition: HOME SELF-CARE Condition: Good Instructions (If sedation given, give patient instructions): Constipation (ED), Abdominal Pain (ED) Is patient prescribed a controlled substance at d/c from ED?: No Referrals: Radhika Andrade MD [Primary Care Provider] - 1-2 days Time of Disposition: 13:35
[2023-08-03 11:32] VITALS: BP 145/81; PULSE 79; RESP 18; TEMP 98.1
[2023-08-03 12:20] LABS: Appearance,Urine Clear (Clear); Basophils % (A) 0 %; Bilirubin,Urine Negative (Negative); Blood,Urine Negative (Negative); Color,Urine Colorless; Eosinophils # (A) 0.1 k/uL (0-0.7); Eosinophils % (A) 1 %; Glucose,Urine (UA) Negative (Negative); HGB 12.7 gm/dL (11.4-16.0); Ketones,Urine Negative (Negative); Leukocyte Esterase,Urine Negative (Negative); Lymphocytes # (A) 1.1 k/uL (1.0-4.8); Lymphocytes % (A) 14 %; MCH 29.2 pg (25.0-35.0); MCHC 31.6 g/dL (31.0-37.0); MCV 92.5 fL (80.0-100.0); Mean Platelet Volume 7.5; Monocytes # (A) 0.4 k/uL (0-1.0); Monocytes % (A) 5 %; Neutrophils # (A) 6.1 k/uL (1.3-7.7); Neutrophils % (A) 78 %; Nitrite,Urine Negative (Negative); PH, Urine 7.5 (5.0-8.0); Platelet Count 277 k/uL (150-450); Protein,Urine Negative (Negative); RBC 4.33 m/uL (3.80-5.40); RDW 13.2 % (11.5-15.5); Specific Gravity,Urine 1.007 (1.001-1.035); Urobilinogen,Urine <2.0 mg/dL (<2.0); WBC 7.8 k/uL (3.8-10.6)
[2023-08-03 12:34] LABS: ALT 23 U/L (4-34); AST 32 U/L (14-36); African American GFR (CKD) 87 (>60 ml/min/1.73 sqM); Albumin 4.4 g/dL (3.5-5.0); Alkaline Phosphatase 49 U/L (38-126); Amylase 55 U/L (30-110); Anion Gap 9 mmol/L; Blood Urea Nitrogen 17 mg/dL (7-17); Calcium 9.8 mg/dL (8.4-10.2); Carbon Dioxide 26 mmol/L (22-30); Chloride 105 mmol/L (98-107); Glucose 104 mg/dL (74-99); Lipase 62 U/L (23-300); Non-African American GFR(CKD) 75 (>60 ml/min/1.73 sqM); Potassium 4.4 mmol/L (3.5-5.1); Sodium 140 mmol/L (137-145); Total Bilirubin 0.6 mg/dL (0.2-1.3); Total Protein 7.4 g/dL (6.3-8.2)
--- NOTE | 2023-08-03 13:21 | CT ---
EXAMINATION TYPE: CT abdomen pelvis w con DATE OF EXAM: 08/03/2023 COMPARISON: None INDICATION: LLQ pain, constipation DLP: 737.2 mGycm, Automated exposure control for dose reduction was used. CONTRAST: 100 mL of Isovue 300. Study performed without Oral Contrast TECHNIQUE: Axial images were obtained from above the diaphragm to the pubic rami in the axial plane a t 5 mm thick sections. Reconstructed images are reviewed on the computer in the coronal plane. FINDINGS: Limited CT sections are obtained the lung bases. The lung bases are clear. CT ABDOMEN: Liver: Normal Spleen: Normal Pancreas: Normal Adrenal glands: The adrenal glands are normal. Gallbladder: Normal Kidneys: No masses are evident. No hydronephrosis is present. No cysts are present. Delayed images were obtained through the kidneys, which remain unremarkable. Aorta: Normal Inferior vena cava: Normal. CT PELVIS: Loops of bowel within the abdomen and pelvis are normal. The study is without oral contrast limit ing bowel evaluation. Significant fecal retention is evident. Couple diverticuli may be present. Appendix: Normal as visualized. Urinary bladder: Normal. Genitourinary structures: Uterus is normal. Adnexa are normal. Osseous structures: No suspicious lytic or sclerotic lesions. Vacuum disc phenomenon is present in th e lower lumbar spine IMPRESSION: 1. No acute abnormality CT abdomen and pelvis. No significant fecal retention.
== END 2023-08-03 14:10 | disposition home or self-care (01) ==
LOC: EC 11:10
DX: K59.00 Constipation, unspecified (principal); Z88.1 Allergy status to other antibiotic agents; Z88.8 Allergy status to other drugs, medicaments and biological substances; Z88.0 Allergy status to penicillin
CPT/HCPCS: 99284 ×2; 36415; 80053; 82150; 83690; 83735; 85025; 81003; 74177; Q9967